=== PATIENT | female | born 1970 | race Caucasian/White ===

== ENCOUNTER 2021-01-05 07:00 | Outpatient (RCR) | payer BC | END 2021-01-10 | LOC: PT 07:00 | PROVIDERS: ATTEND Specialist | DX: M75.42 Impingement syndrome of left shoulder (principal) ==

== ENCOUNTER 2021-01-12 07:12 | Outpatient (RCR) | payer BC | END 2021-02-10 | LOC: PT 07:12 | PROVIDERS: ATTEND Specialist | DX: M75.42 Impingement syndrome of left shoulder (principal) ==